=== PATIENT | female | born 1995 | race Caucasian/White ===

== ENCOUNTER 2018-07-31 10:22 | Emergency (ER) | payer OTHER ==
--- NOTE | 2018-07-31 10:47 | EDPHY ---
H & P Stated Complaint: cp, SOB Time Seen by Provider: 07/31/18 10:34 HPI/ROS: CHIEF COMPLAINT: Chest pain, dyspnea, hyperventilation, now resolved HISTORY OF PRESENT ILLNESS: 23-year-old female, daily tobacco abuse, no cocaine use, originally seen at the Urgent Care for complaints of chest pain, palpitations, dyspnea, hyperventilation while she was at work and referred to the ER for further evaluation. She states that after taking a walk outside she is feeling improvement in symptoms. She denies: Recent illness, malignancy history, recent surgery, recent immobilization, hemoptysis, cold or flu-like symptoms, calf pain, leg swelling, exogenous estrogen use REVIEW OF SYSTEMS: 10 systems reviewed and negative with the exception of the elements mentioned in the history of present illness PAST MEDICAL & SURGICAL HISTORY: No pertinent medical or surgical history . no VTE history. SOCIAL HISTORY: Daily tobacco abuse. No cocaine use. FAMILY HISTORY: No VTE history, no history of sudden unexplained , no premature coronary disease history PHYSICAL EXAM (Prior to examination, patient consented to physical exam, hands were washed and my usual and customary physical exam procedures followed) 1) GENERAL: Well-developed, well-nourished, alert and oriented. Appears calm. 2) HEAD: Normocephalic, atraumatic 3) HEENT: Pupils equal, round, reactive to light bilaterally. Sclera anicteric. Nasopharynx, oropharynx, clear, no lesions. Moist Mucous membranes. 4) NECK: Full range of motion, no meningeal signs. No carotid bruit 5) LUNGS: Clear auscultation bilaterally, no wheezes, no rhonchi, no retractions. 6) HEART: Regular rate and rhythm, no murmur, no heave, no gallop. 7) ABDOMEN: No guarding, no rebound, no focal tenderness, negative McBurney's, negative Carlton's, negative Rovsing's, negative peritoneal sign, 8) MUSCULOSKELETAL: Moving all extremities, no focal areas of tenderness, no obvious trauma. No peripheral edema or discoloration. Negative Homans no palpable cord 9) BACK: No CVA tenderness, no midline vertebral tenderness, no fluctuance, no step-off, no obvious trauma, no visual or palpable abnormality. 10) SKIN: No rash, no petechiae. 11) Psychiatric: Patient is oriented X 3, there is no agitation. DIFFERENTIAL DIAGNOSIS: In no particular order including but not limited to pulmonary infectious etiology, pulmonary embolus, VT, anxiety, pneumothorax - Personal History Current Tetanus/Diphtheria Vaccine: Yes Current Tetanus Diphtheria and Acellular Pertussis (TDAP): Yes - Medical/Surgical History Hx Asthma: Yes Hx Chronic Respiratory Disease: No Hx Diabetes: No Hx Cardiac Disease: No Hx Renal Disease: No Hx Cirrhosis: No Hx Alcoholism: No Hx HIV/AIDS: No Hx Splenectomy or Spleen Trauma: No Other PMH: L breast biopsy, asthma, depression, anxiety - Social History Smoking Status: Current every day smoker Constitutional: Initial Vital Signs Temperature (C) 37.3 C 07/31/18 10:26 Heart Rate 66 07/31/18 10:26 Respiratory Rate 16 07/31/18 10:26 Blood Pressure 92/78 L 07/31/18 10:26 O2 Sat (%) 98 07/31/18 10:26 O2 Delivery Mode Room Air Allergies/Adverse Reactions: adhesive tape Allergy (Verified 07/31/18 10:26) latex Allergy (Verified 07/31/18 10:26) Home Medications: Medication Instructions Recorded Albuterol 07/31/18 Medical Decision Making ED Course/Re-evaluation: Patient was re-evaluated with serial examinations. Discussed my low pretest suspicion for pulmonary embolus in the patient, negative perc score. Will not obtain D-dimer. Doubt VT given her lack of risk factors. She has a history of daily tobacco abuse I recommend tobacco cessation. She feels comfortable being discharged. Patient feels comfortable being discharged. All questions and concerns addressed by myself. Patient given my usual and customary discharge precautions and instructions regarding their clinical impression. Care of patient under supervision of secondary supervising physician Dr Thompson with whom I discussed case. Departure - Departure Disposition: Home, Routine, Self-Care Clinical Impression: Dyspnea Qualifiers: Dyspnea type: unspecified Qualified Code(s): R06.00 - Dyspnea, unspecified Condition: Good Instructions: Dyspnea (ED) Additional Instructions: Please stop smoking. Referrals: [facility],. [Clinic] - 1-2 days without fail
--- NOTE | 2018-07-31 11:02 | CPEKG ---
Test Reason : OPEN Blood Pressure : / mmHG Vent. Rate : 061 BPM Atrial Rate : 060 BPM P-R Int : 144 ms QRS Dur : 086 ms QT Int : 417 ms P-R-T Axes : -10 106 048 degrees QTc Int : 420 ms Sinus rhythm Consider right ventricular hypertrophy Confirmed by Sharath Thompson ([id number]) on 07/31/2018 11:01:53 AM Referred By: Sharath Thompson Confirmed By:Sharath Thompson
[2018-07-31 11:05] VITALS: BP 118/83
== END 2018-07-31 11:05 | disposition home or self-care (01) ==
DX: R06.00 Dyspnea, unspecified (principal); F17.200 Nicotine dependence, unspecified, uncomplicated